=== PATIENT | female | born 1995 | race Caucasian/White ===

== ENCOUNTER 2018-08-21 16:08 | Emergency (ER) | payer MEDICAID ==
[~2018-08-21] VITALS: Ht 165.1 cm; Wt 60.0 kg
[~2018-08-21 16:08] MED LIST: HYDR-4383 PO; MECL-127 PO; ONDA4TAB12 PO; ONDA4TAB6 PO; PHEN-786 PO; POLY17PO10 PO
--- NOTE | 2018-08-21 16:32 | NUR ---
pt is resting quietly on gurney, waiting to be evaluated
[2018-08-21 16:50] VITALS: BP 101/67
== END 2018-08-21 16:52 | disposition home or self-care (01) ==
LOC: ER 16:09
DX: J30.2 Other seasonal allergic rhinitis (principal); K21.9 Gastro-esophageal reflux disease without esophagitis; F12.90 Cannabis use, unspecified, uncomplicated; Z79.899 Other long term (current) drug therapy
CPT/HCPCS: 99281

== ENCOUNTER 2019-11-04 10:03 | Emergency (ER) | payer MEDICAID ==
[~2019-11-04] VITALS: Ht 165.1 cm; Wt 42.0 kg
[2019-11-04] MEDS ORDERED: ondansetron/PF 4mg/2ml inj IV ONE ×2 (10:35→10:40)
[2019-11-04] MEDS ORDERED: famotidine/PF 10 mg/ml inj IV ONE (10:35)
[2019-11-04] MEDS ORDERED: normal saline 1000ML IV soln IVB ONE (10:35)
[2019-11-04] MEDS ORDERED: pantoprazole 40 MG vial IV ONE (10:35)
[2019-11-04 10:38] LABS: BASOPHILS # (AUTO) 0.1 X10'3 (0-0.2); BASOPHILS % (AUTO) 0.8 % (0-1); EOSINOPHILS # (AUTO) 0.1 X10'3 (0-0.9); EOSINOPHILS % (AUTO) 0.8 % (0-6); HEMATOCRIT 44.3 % (35.0-45.0); LYMPHOCYTES # (AUTO) 1.2 X10'3 (1.1-4.8); LYMPHOCYTES % (AUTO) 14.4 % (21-51); MEAN CORPUSCULAR HEMOGLOBIN 29.9 PG (27.0-31.0); MEAN CORPUSCULAR HGB CONC 33.8 g/dL (33.0-36.5); MEAN CORPUSCULAR VOLUME 88.4 FL (78-98); MONOCYTES # (AUTO) 0.6 X10'3 (0-0.9); MONOCYTES % (AUTO) 7.8 % (2-12); NEUTROPHILS # (AUTO) 6.1 X10'3 (1.8-7.7); NEUTROPHILS % (AUTO) 76.2 % (42-75); PLATELET COUNT 207 X10'3 (140-440); RED BLOOD COUNT 5.01 X10'6 (4.20-5.60)
[2019-11-04 11:04] LABS: ALANINE AMINOTRANSFERASE 33 U/L (12-78); ALBUMIN 4.2 G/DL (3.4-5.0); ALBUMIN/GLOBULIN RATIO 1.1 (1.1-1.5); ALKALINE PHOSPHATASE 66 IU/L (46-116); ANION GAP 11 (8-16); ASPARTATE AMINO TRANSFERASE 26 U/L (10-37); BILIRUBIN,TOTAL 0.9 MG/DL (0.1-1.0); BLOOD UREA NITROGEN 8 MG/DL (7-18); BUN/CREATININE RATIO 8.2 (6.6-38.0); CALCIUM 9.5 MG/DL (8.5-10.1); CHLORIDE 104 MMOL/L (99-107); CREATININE 0.98 MG/DL (0.40-0.90); GLUCOSE 98 MG/DL (70-104); LIPASE 64 U/L (73-393); POTASSIUM 3.1 MMOL/L (3.5-5.1); SODIUM 139 MMOL/L (135-145); TOTAL CARBON DIOXIDE 23.8 MMOL/L (24-32); TOTAL PROTEIN 7.9 G/DL (6.4-8.2); eGFR 72 ML/MIN
--- NOTE | 2019-11-04 11:21 | NUR ---
PATIENT UP TO THE BATHROOM.
[2019-11-04 11:42] LABS: URINE HCG NEGATIVE (NEG)
[2019-11-04 11:50] LABS: CLARITY,URINE CLOUDY (Clear); COLOR,URINE YELLOW (Yellow); GLUCOSE, URINE NEGATIVE (Neg); KETONES,URINE NEGATIVE (Neg); LEUKOCYTE ESTERASE ,URINE NEGATIVE (Neg); NITRITES, URINE NEGATIVE (Neg); OCCULT BLOOD,URINE NEGATIVE (Neg); PH,URINE 8.5 (4.8-8.0); PROTEIN,URINE TRACE mg/dl (Neg)
[2019-11-04 11:54] LABS: UA COLLECTION TYPE CLN CATCH MIDSTREAM
[2019-11-04 11:59] LABS: URINE AMPHETAMINE SCREEN NEGATIVE (Neg); URINE BARBITUATE SCREEN NEGATIVE (Neg); URINE BENZODIAZEPINES SCREEN NEGATIVE (Neg); URINE CANNABINOID SCREEN POSITIVE (Neg); URINE COCAINE SCREEN NEGATIVE (Neg); URINE METHADONE SCREEN NEGATIVE (Neg); URINE OPIATE SCREEN NEGATIVE (Neg); URINE PHENCYCLIDINE SCREEN NEGATIVE (Neg)
[2019-11-04 12:05] LABS: AMORPHOUS PHOSPHATES 4+; BACTERIA,URINE FEW /HPF (Neg); MUCUS STRANDS FEW /LPF (Neg); RBC,URINE NONE SEEN /HPF (0-2); SQUAMOUS EPITHELIAL CELL,UR MANY /LPF (FEW); WBC,URINE 0-4 /HPF (0-4)
[2019-11-04] MEDS ORDERED: potassium Cl 20 mEq SR tablet PO STA (12:08)
[2019-11-04] MEDS ORDERED: haloperidol lactate 5mg/ml inj IM ONE (12:10)
[2019-11-04] MEDS ORDERED: ONDA4TAB6 PO (12:16)
[2019-11-04] MEDS ORDERED: OMEP20CA15 PO (12:16)
[2019-11-04] MEDS ORDERED: SUCR1TAB34 PO (12:16)
[2019-11-04] MEDS ORDERED: FAMO20TA44 PO (12:16)
[2019-11-04 12:38] VITALS: BP 107/67
[2019-11-08 13:02] LABS: OCCULT BLOOD STOOL NEGATIVE (Neg)
== END 2019-11-04 12:42 | disposition home or self-care (01) ==
LOC: ER 10:04
DX: K29.00 Acute gastritis without bleeding (principal); E87.6 Hypokalemia; R11.2 Nausea with vomiting, unspecified; R10.13 Epigastric pain; F15.90 Other stimulant use, unspecified, uncomplicated; K21.9 Gastro-esophageal reflux disease without esophagitis; Z87.440 Personal history of urinary (tract) infections; Z87.01 Personal history of pneumonia (recurrent); Z79.899 Other long term (current) drug therapy
CPT/HCPCS: 36415; 80053; 80305; 81001; 81025; 83690; 85025; 96361; 96372; 96374; 96375; 99284; C9113; J1630; J2405; J3490; J7030; 82272

== ENCOUNTER 2020-03-04 16:20 | Emergency (ER) | payer MEDICAID ==
[~2020-03-04] VITALS: Ht 166.4 cm; Wt 53.0 kg
[~2020-03-04 16:20] MED LIST changes: +FAMO20TA44 PO; +OMEP20CA15 PO; +SUCR1TAB34 PO
[2020-03-04] MEDS ORDERED: ketorolac trometh inj. 60 MG/2 ML VIAL IM ONE (17:25)
[2020-03-04] MEDS ORDERED: ondansetron 4mg rapidly disintigrating tab PO ONE (17:25)
[2020-03-04 17:38] LABS: CLARITY,URINE SLIGHTLY CLOUDY (Clear); COLOR,URINE YELLOW (Yellow); GLUCOSE, URINE NEGATIVE (Neg); KETONES,URINE 40 mg/dl (Neg); LEUKOCYTE ESTERASE ,URINE NEGATIVE (Neg); NITRITES, URINE NEGATIVE (Neg); OCCULT BLOOD,URINE TRACE-INTACT (Neg); PROTEIN,URINE 30 mg/dl (Neg); UROBILINOGEN,URINE 0.2 E.U/dL (0.2-1.0)
[2020-03-04 17:39] LABS: URINE HCG NEGATIVE (NEG)
[2020-03-04 17:42] LABS: UA COLLECTION TYPE CLN CATCH MIDSTREAM
[2020-03-04 17:44] LABS: MUCUS STRANDS MANY /LPF (Neg); SQUAMOUS EPITHELIAL CELL,UR MANY /LPF (FEW)
[2020-03-04 17:45] LABS: BACTERIA,URINE FEW /HPF (Neg); WBC,URINE 0-4 /HPF (0-4)
[2020-03-04 17:50] LABS: BASOPHILS % (AUTO) 0.4 % (0-1); EOSINOPHILS % (AUTO) 0 % (0-6); HEMATOCRIT 42.6 % (35.0-45.0); HEMOGLOBIN 14.7 g/dl (12.0-16.0); LYMPHOCYTES # (AUTO) 0.5 X10'3 (1.1-4.8); LYMPHOCYTES % (AUTO) 4.9 % (21-51); MEAN CORPUSCULAR HEMOGLOBIN 31.4 PG (27.0-31.0); MEAN CORPUSCULAR HGB CONC 34.4 g/dL (33.0-36.5); MEAN CORPUSCULAR VOLUME 91.2 FL (78-98); MEAN PLATELET VOLUME 9.1 FL (7.4-10.4); MONOCYTES # (AUTO) 0.3 X10'3 (0-0.9); MONOCYTES % (AUTO) 2.9 % (2-12); NEUTROPHILS # (AUTO) 10.4 X10'3 (1.8-7.7); NEUTROPHILS % (AUTO) 91.8 % (42-75); PLATELET COUNT 279 X10'3 (140-440); RED BLOOD COUNT 4.67 X10'6 (4.20-5.60); RED CELL DISTRIBUTION WIDTH 13.2 % (11.5-14.5); WHITE BLOOD COUNT 11.3 X10'3 (4.5-11.0)
[2020-03-04 17:55] LABS: HCG SERUM QL NEGATIVE
[2020-03-04 18:04] LABS: ALANINE AMINOTRANSFERASE 41 U/L (12-78); ALBUMIN 4.2 G/DL (3.4-5.0); ALKALINE PHOSPHATASE 65 IU/L (46-116); ANION GAP 9 (8-16); ASPARTATE AMINO TRANSFERASE 27 U/L (10-37); BILIRUBIN,TOTAL 0.7 MG/DL (0.1-1.0); BLOOD UREA NITROGEN 11 MG/DL (7-18); BUN/CREATININE RATIO 12.9 (6.6-38.0); CALCIUM 9.5 MG/DL (8.5-10.1); CHLORIDE 102 MMOL/L (99-107); CREATININE 0.85 MG/DL (0.40-0.90); GLUCOSE 98 MG/DL (70-104); POTASSIUM 3.6 MMOL/L (3.5-5.1); SODIUM 138 MMOL/L (135-145); TOTAL CARBON DIOXIDE 26.8 MMOL/L (24-32); TOTAL PROTEIN 8.4 G/DL (6.4-8.2); eGFR 84 ML/MIN
[2020-03-04] MEDS ORDERED: proCHLORperazine 10mg tablet PO ONE (18:20)
[2020-03-04] MEDS ORDERED: ONDA4TAB6 PO (18:50)
[2020-03-04 19:07] VITALS: BP 111/78
== END 2020-03-04 19:08 | disposition home or self-care (01) ==
LOC: ER 16:21
DX: K29.20 Alcoholic gastritis without bleeding (principal); F10.10 Alcohol abuse, uncomplicated; R10.84 Generalized abdominal pain; R11.10 Vomiting, unspecified; R42 Dizziness and giddiness; K21.9 Gastro-esophageal reflux disease without esophagitis; Z87.440 Personal history of urinary (tract) infections; Z87.01 Personal history of pneumonia (recurrent); Z79.899 Other long term (current) drug therapy; Y90.9 Presence of alcohol in blood, level not specified
CPT/HCPCS: 36415; 80053; 81001; 81025; 84703; 85025; 96372; 99283; J1885; Q0164

== ENCOUNTER 2020-05-14 11:58 | Emergency (ER) | payer MEDICAID ==
[~2020-05-14] VITALS: Ht 165.1 cm; Wt 55.6 kg
[2020-05-14 13:41] LABS: BASOPHILS % (AUTO) 0.6 % (0-1); EOSINOPHILS # (AUTO) 0.2 X10'3 (0-0.9); EOSINOPHILS % (AUTO) 3.7 % (0-6); HEMATOCRIT 42.8 % (35.0-45.0); HEMOGLOBIN 14.5 g/dl (12.0-16.0); LYMPHOCYTES # (AUTO) 1.9 X10'3 (1.1-4.8); LYMPHOCYTES % (AUTO) 29.5 % (21-51); MEAN CORPUSCULAR HEMOGLOBIN 30.8 PG (27.0-31.0); MEAN CORPUSCULAR HGB CONC 33.8 g/dL (33.0-36.5); MEAN CORPUSCULAR VOLUME 91.3 FL (78-98); MONOCYTES # (AUTO) 0.5 X10'3 (0-0.9); MONOCYTES % (AUTO) 7.9 % (2-12); NEUTROPHILS # (AUTO) 3.7 X10'3 (1.8-7.7); NEUTROPHILS % (AUTO) 58.3 % (42-75); PLATELET COUNT 207 X10'3 (140-440); RED BLOOD COUNT 4.69 X10'6 (4.20-5.60); WHITE BLOOD COUNT 6.3 X10'3 (4.5-11.0)
[2020-05-14 14:39] VITALS: BP 110/60
== END 2020-05-14 14:42 | disposition home or self-care (01) ==
LOC: ER 11:58
DX: O26.891 Other specified pregnancy related conditions, first trimester (principal); O20.9 Hemorrhage in early pregnancy, unspecified; R10.9 Unspecified abdominal pain; F12.90 Cannabis use, unspecified, uncomplicated; Z3A.01 Less than 8 weeks gestation of pregnancy; Z87.440 Personal history of urinary (tract) infections; Z79.899 Other long term (current) drug therapy; Z87.01 Personal history of pneumonia (recurrent)
CPT/HCPCS: 36415; 84702; 85025; 99283

== ENCOUNTER 2020-05-16 14:26 | Emergency (ER) | payer MEDICAID ==
[~2020-05-16] VITALS: Ht 165.1 cm; Wt 54.0 kg
[2020-05-16 14:31] VITALS: BP 106/64
== END 2020-05-16 16:28 | disposition home or self-care (01) ==
LOC: ER 14:27
DX: O26.891 Other specified pregnancy related conditions, first trimester (principal); O46.91 Antepartum hemorrhage, unspecified, first trimester; O99.331 Smoking (tobacco) complicating pregnancy, first trimester; F17.200 Nicotine dependence, unspecified, uncomplicated; O99.321 Drug use complicating pregnancy, first trimester; O99.611 Diseases of the digestive system complicating pregnancy, first trimester; K21.9 Gastro-esophageal reflux disease without esophagitis; F12.90 Cannabis use, unspecified, uncomplicated; Z3A.01 Less than 8 weeks gestation of pregnancy; Z87.440 Personal history of urinary (tract) infections; Z87.01 Personal history of pneumonia (recurrent); Z79.899 Other long term (current) drug therapy
CPT/HCPCS: 36415; 84702; 99283

== ENCOUNTER 2020-06-21 09:51 | Emergency (ER) | payer MEDICAID ==
[~2020-06-21] VITALS: Ht 165.1 cm; Wt 53.2 kg
[2020-06-21 09:53] VITALS: BP 111/54
[2020-06-21] MEDS ORDERED: AMOX-580 PO (10:16)
== END 2020-06-21 10:27 | disposition home or self-care (01) ==
LOC: ER 09:52
DX: S02.2XXD Fracture of nasal bones, subsequent encounter for fracture with routine healing (principal); S00.33XD Contusion of nose, subsequent encounter; S00.83XD Contusion of other part of head, subsequent encounter; J34.89 Other specified disorders of nose and nasal sinuses; K21.9 Gastro-esophageal reflux disease without esophagitis; F17.200 Nicotine dependence, unspecified, uncomplicated; F12.90 Cannabis use, unspecified, uncomplicated; Z87.440 Personal history of urinary (tract) infections; Z87.01 Personal history of pneumonia (recurrent); Z79.2 Long term (current) use of antibiotics; Z79.899 Other long term (current) drug therapy; X58.XXXD Exposure to other specified factors, subsequent encounter
CPT/HCPCS: 99283

== ENCOUNTER 2020-07-28 10:11 | Emergency (ER) | payer MEDICAID ==
[~2020-07-28] VITALS: Ht 165.1 cm; Wt 51.2 kg
[2020-07-28] MEDS ORDERED: acetaminophen 325mg tablet PO ONE (10:40)
[2020-07-28 10:50] LABS: CLARITY,URINE CLEAR (Clear); COLOR,URINE YELLOW (Yellow); UA COLLECTION TYPE CLN CATCH MIDSTREAM
[2020-07-28 10:51] LABS: GLUCOSE, URINE NEGATIVE (Neg); KETONES,URINE NEGATIVE (Neg); LEUKOCYTE ESTERASE ,URINE NEGATIVE (Neg); NITRITES, URINE NEGATIVE (Neg); OCCULT BLOOD,URINE TRACE-INTACT (Neg); PROTEIN,URINE NEGATIVE (Neg); UROBILINOGEN,URINE 0.2 E.U/dL (0.2-1.0)
[2020-07-28 10:52] LABS: BACTERIA,URINE FEW /HPF (Neg); MUCUS STRANDS NONE SEEN /LPF (Neg); RBC,URINE 0-2 /HPF (0-2); SQUAMOUS EPITHELIAL CELL,UR MANY /LPF (FEW); WBC,URINE 0-4 /HPF (0-4)
[2020-07-28 11:59] VITALS: BP 115/69
== END 2020-07-28 12:00 | disposition home or self-care (01) ==
LOC: ER 10:11
DX: O26.891 Other specified pregnancy related conditions, first trimester (principal); M54.5 Low back pain; O21.8 Other vomiting complicating pregnancy; O99.321 Drug use complicating pregnancy, first trimester; F12.90 Cannabis use, unspecified, uncomplicated; K21.9 Gastro-esophageal reflux disease without esophagitis; Z87.442 Personal history of urinary calculi; Z87.01 Personal history of pneumonia (recurrent); Z79.899 Other long term (current) drug therapy; Z88.8 Allergy status to other drugs, medicaments and biological substances; Z3A.09 9 weeks gestation of pregnancy; F12.929 Cannabis use, unspecified with intoxication, unspecified
CPT/HCPCS: 81001; 99283

== ENCOUNTER 2020-08-13 10:46 | Emergency (ER) | payer MEDICAID ==
[~2020-08-13] VITALS: Ht 165.1 cm; Wt 50.5 kg
[2020-08-13 10:56] VITALS: BP 97/48
--- NOTE | 2020-08-13 11:22 | NUR ---
PT. CALLED NOT IN LOBBY
== END 2020-08-13 11:25 | disposition left against medical advice (07) ==
LOC: ER 10:47
DX: R51.9 Headache, unspecified (principal); M54.9 Dorsalgia, unspecified; Z53.21 Procedure and treatment not carried out due to patient leaving prior to being seen by health care provider

== ENCOUNTER 2020-08-13 19:03 | Emergency (ER) | payer MEDICAID ==
[~2020-08-13] VITALS: Ht 165.1 cm; Wt 53.0 kg
[2020-08-13 19:18] VITALS: BP 131/68
== END 2020-08-13 21:40 | disposition left against medical advice (07) ==
LOC: ER 19:03
DX: R51.9 Headache, unspecified (principal); M54.2 Cervicalgia; Z53.21 Procedure and treatment not carried out due to patient leaving prior to being seen by health care provider

== ENCOUNTER 2021-10-25 09:16 | Emergency (ER) | payer MEDICAID ==
[~2021-10-25] VITALS: Ht 165.1 cm; Wt 49.5 kg
[2021-10-25 09:30] VITALS: BP 104/71
[2021-10-25] MEDS ORDERED: PENI500T2 PO (11:04)
== END 2021-10-25 11:25 | disposition home or self-care (01) ==
LOC: ER 09:17
DX: R21 Rash and other nonspecific skin eruption (principal); R50.9 Fever, unspecified; J20.9 Acute bronchitis, unspecified; M54.2 Cervicalgia; K21.9 Gastro-esophageal reflux disease without esophagitis; F31.9 Bipolar disorder, unspecified; F12.10 Cannabis abuse, uncomplicated; Z88.8 Allergy status to other drugs, medicaments and biological substances; Z79.899 Other long term (current) drug therapy
CPT/HCPCS: 87880; 99283

== ENCOUNTER 2021-10-28 12:45 | Emergency (ER) | payer MEDICAID ==
[~2021-10-28] VITALS: Ht 165.1 cm; Wt 49.5 kg
[~2021-10-28 12:45] MED LIST changes: +PENI500T2 PO
[2021-10-28 12:51] VITALS: BP 108/61
[2021-10-28 13:39] LABS: BASOPHILS # (AUTO) 0.1 X10'3 (0-0.2); EOSINOPHILS # (AUTO) 0.8 X10'3 (0-0.9); LYMPHOCYTES # (AUTO) 2.5 X10'3 (1.1-4.8)
[2021-10-28 13:40] LABS: EOSINOPHILS % (AUTO) 6.9 % (0-6); HEMATOCRIT 43.8 % (35.0-45.0); HEMOGLOBIN 14.9 g/dl (12.0-16.0); LYMPHOCYTES % (AUTO) 21.3 % (21-51); MEAN CORPUSCULAR HEMOGLOBIN 27.2 PG (27.0-31.0); MEAN CORPUSCULAR VOLUME 79.9 FL (78-98); MEAN PLATELET VOLUME 9.1 FL (7.4-10.4); MONOCYTES # (AUTO) 1.2 X10'3 (0-0.9); MONOCYTES % (AUTO) 10.5 % (2-12); NEUTROPHILS # (AUTO) 7.1 X10'3 (1.8-7.7); NEUTROPHILS % (AUTO) 60.3 % (42-75); PLATELET COUNT 138 X10'3 (140-440); RED BLOOD COUNT 5.49 X10'6 (4.20-5.60); WHITE BLOOD COUNT 11.8 X10'3 (4.5-11.0)
[2021-10-28 13:55] LABS: ALANINE AMINOTRANSFERASE 181 U/L (12-78); ALBUMIN 3.1 G/DL (3.4-5.0); ALBUMIN/GLOBULIN RATIO 0.8 (1.1-1.5); ALKALINE PHOSPHATASE 218 IU/L (46-116); ANION GAP 12 (8-16); ASPARTATE AMINO TRANSFERASE 57 U/L (10-37); BILIRUBIN,TOTAL 1.1 MG/DL (0.1-1.0); BLOOD UREA NITROGEN 6 MG/DL (7-18); BUN/CREATININE RATIO 5.7 (6.6-38.0); CALCIUM 8.6 MG/DL (8.5-10.1); CHLORIDE 96 MMOL/L (99-107); CREATININE 1.05 MG/DL (0.40-0.90); GLUCOSE 98 MG/DL (70-104); POTASSIUM 3.6 MMOL/L (3.5-5.1); SODIUM 130 MMOL/L (135-145); TOTAL CARBON DIOXIDE 21.6 MMOL/L (24-32); TOTAL PROTEIN 6.9 G/DL (6.4-8.2); eGFR 65 ML/MIN
[2021-10-28] MEDS ORDERED: acetaminophen 325mg tablet PO STA (14:58)
[2021-10-28] MEDS ORDERED: normal saline 1000ML IV soln IV ONE (15:00)
[2021-10-28] MEDS ORDERED: ringers solution, lactated 1000ml IV soln IV ONE (15:50)
[2021-10-28] MEDS ORDERED: ondansetron/PF 4mg/2ml inj IV ONE (15:55)
[2021-10-28 16:11] LABS: MONOTEST NEGATIVE (Neg)
[2021-10-28] MEDS: morphine 4 MG/ML inj SYRINge IV PRN ×2 (16:11→16:13)
--- NOTE | 2021-10-28 16:13 | NUR ---
IVP X2 GIVEN BY ANATOMICAL EMBALMER DANY DIAZ FINISHED LR 1000ML STARTED
[2021-10-28] MEDS ORDERED: HYDR-3972 PO (16:39)
[2021-10-28] MEDS ORDERED: diphenhydrAMINE 25mg capsule PO ONE (17:00)
[2021-10-28 17:04] LABS: CLARITY,URINE SLIGHTLY CLOUDY (Clear); COLOR,URINE YELLOW (Yellow); GLUCOSE, URINE NEGATIVE (Neg); KETONES,URINE 15 mg/dl (Neg); LEUKOCYTE ESTERASE ,URINE TRACE (Neg); NITRITES, URINE NEGATIVE (Neg); OCCULT BLOOD,URINE NEGATIVE (Neg); PROTEIN,URINE TRACE mg/dl (Neg); UA COLLECTION TYPE CLN CATCH MIDSTREAM
--- NOTE | 2021-10-28 17:17 | NUR ---
IV DC'D PT BEING DISCHARGED DRESSING APPLIED
[2021-10-28 17:18] LABS: BACTERIA,URINE FEW /HPF (Neg); RBC,URINE 0-2 /HPF (0-2); SQUAMOUS EPITHELIAL CELL,UR MANY /LPF (FEW)
[2021-10-28 17:19] LABS: MUCUS STRANDS MODERATE /LPF (Neg)
[2021-10-30 11:52] LABS: EBV AB VCA, IGM <36.0 U/mL (0.0-35.9); EBV NUCLEAR ANTIGEN AB, IGG <18.0 U/mL (0.0-17.9)
== END 2021-10-28 17:18 | disposition home or self-care (01) ==
LOC: ER 12:45
DX: R50.9 Fever, unspecified (principal); R21 Rash and other nonspecific skin eruption; R74.01 Elevation of levels of liver transaminase levels; F31.9 Bipolar disorder, unspecified; F12.10 Cannabis abuse, uncomplicated; Z88.2 Allergy status to sulfonamides; Z79.899 Other long term (current) drug therapy
CPT/HCPCS: 36415; 71045; 80053; 81001; 83605; 84145; 85025; 86308; 86592; 86663; 86664; 86665; 87040; 96361; 96374; 96375; 99284; J2270; J2405; J7030; J7120; Q0163

== ENCOUNTER 2021-10-30 13:36 | Emergency (ER) | payer BC, MEDICAID ==
[~2021-10-30] VITALS: Ht 165.1 cm; Wt 50.0 kg
[~2021-10-30 13:36] MED LIST changes: +HYDR-3972 PO
[2021-10-30] MEDS ORDERED: acetaminophen 325mg tablet PO ONE (14:10)
[2021-10-30] MEDS ORDERED: predniSONE 20 mg tablet PO ONE (14:10)
[2021-10-30] MEDS ORDERED: diphenhydrAMINE 25mg capsule PO ONE (14:10)
[2021-10-30 14:15] VITALS: BP 118/80
[2021-10-30] MEDS ORDERED: PRED10TA23 PO (15:48)
[2021-10-30] MEDS ORDERED: ACET-75 PO (15:48)
[2021-10-30] MEDS ORDERED: [UNRECOGNIZED DRUG - CODE] PO (15:48)
[2021-10-30] MEDS ORDERED: DIPH25CA83 PO (15:48)
== END 2021-10-30 16:14 | disposition home or self-care (01) ==
LOC: ER 13:38
DX: L25.8 Unspecified contact dermatitis due to other agents (principal); T36.0X5A Adverse effect of penicillins, initial encounter; Y92.89 Other specified places as the place of occurrence of the external cause; K21.9 Gastro-esophageal reflux disease without esophagitis; F31.9 Bipolar disorder, unspecified; F12.10 Cannabis abuse, uncomplicated; Z88.0 Allergy status to penicillin; Z88.2 Allergy status to sulfonamides; Z79.899 Other long term (current) drug therapy
CPT/HCPCS: 99284; J7512; Q0163

== ENCOUNTER 2023-10-25 18:52 | Emergency (ER) | payer MEDICAID ==
[~2023-10-25] VITALS: Ht 165.1 cm; Wt 57.7 kg
[~2023-10-25 18:52] MED LIST changes: +ACET-75 PO; +DIPH25CA83 PO; -HYDR-3972 PO; -PENI500T2 PO; +[UNRECOGNIZED DRUG - CODE] PO
[2023-10-25 19:35] LABS: BILIRUBIN,URINE NEGATIVE (Neg); CLARITY,URINE CLOUDY (Clear); COLOR,URINE STRAW (Yellow); GLUCOSE, URINE NEGATIVE (Neg); KETONES,URINE NEGATIVE (Neg); LEUKOCYTE ESTERASE ,URINE NEGATIVE (Neg); NITRITES, URINE POSITIVE (Neg); OCCULT BLOOD,URINE MODERATE (Neg); PH,URINE 5.5 (4.8-8.0); PROTEIN,URINE NEGATIVE (Neg); UROBILINOGEN,URINE 0.2 E.U/dL (0.2-1.0)
[2023-10-25 19:42] LABS: UA COLLECTION TYPE CLN CATCH MIDSTREAM
[2023-10-25 19:45] LABS: SQUAMOUS EPITHELIAL CELL,UR MANY /LPF (FEW)
[2023-10-25 19:46] LABS: RBC,URINE 50-100 /HPF (0-2); WBC,URINE 20-30 /HPF (0-4)
[2023-10-25 19:47] LABS: BACTERIA,URINE 1+ /HPF (Neg)
[2023-10-25] MEDS ORDERED: CEFD300C3 PO (20:11)
[2023-10-25 20:16] VITALS: BP 114/72; PULSE 77; RESP 16; TEMP 98.4; O2SAT 99
== END 2023-10-25 20:17 | disposition home or self-care (01) ==
LOC: ER 18:52
DX: N39.0 Urinary tract infection, site not specified (principal); K21.9 Gastro-esophageal reflux disease without esophagitis; F12.90 Cannabis use, unspecified, uncomplicated; Z88.0 Allergy status to penicillin; Z88.8 Allergy status to other drugs, medicaments and biological substances; Z79.899 Other long term (current) drug therapy
CPT/HCPCS: 81001; 99283